=== PATIENT | male | born 1965 | race Caucasian/White ===

== ENCOUNTER → 2020-03-05 07:36 | Outpatient (CLI) | payer OTHER, SELFPAY ==
--- NOTE | 2020-03-05 | DI.ECHO.S_ITS ---
[place] [facility]---------+ [facility] +---------+ : : [address] : : : : [id number] : : : : Phone: [phone]---------+ Echocardiogram Report + + :Name: TANO ARCE Study Date: 03/05/2020 Height: 72 in : :[facility] Weight: 220 lb : : Gender: Male BSA: 2.2 m2 : :: 1965 Age: 54 yrs BP: 115/69 mmHg: :Reason For Study: CARDIOMYOPATHY : :Ordering Physician: JALEESA, : :LORA Performed By: Lakshmi Love : :Referring: LORA LAZCANO : + + Interpretation Summary The left ventricle is normal in size and wall thickness. This is Decreased compared to the previous study. There has been no significant change in LVEF since the previous exam. LV ejection fraction is about 30 to 35%. The right ventricle is at the upper limits of normal in size. The right ventricular systolic function is normal. There is a pacemaker lead in the right ventricle (new finding). No significant valvular pathology seen. The IVC is of normal diameter and collapses greater than 50% with a sniff. This suggests a low right atrial pressure of 3 mm Hg. Procedure: A two-dimensional transthoracic echocardiogram with color flow and Doppler was performed. The study quality was technically adequate. Comparison is made with the echocardiogram of 07/21/2016. The patient had occasional PVCs during the exam. The heart rate ranged between 65-87 bpm during the study. The patient was in normal sinus rhythm during the exam. Left Ventricle: The left ventricle is normal in size and wall thickness. This is Decreased compared to the previous study. There is no thrombus. The ejection fraction is estimated to be 30-35%. There has been no significant change since the previous exam. There is moderate to severe global hypokinesis of the left ventricle. There is a significant dyssynchronous contraction pattern, consistent with a conduction abnormality. Diastolic parameters suggest a relaxation abnormality of the left ventricle, consistent with probable normal filling pressures. Right Ventricle: The right ventricle is at the upper limits of normal in size. There is a pacemaker lead in the right ventricle. The right ventricular systolic function is normal. Atria: The left atrial size is normal. Both atria have remained unchanged in size since the prior echo exam. Right atrial size is normal. There is a catheter/pacemaker lead seen in the right atrium. There is no Doppler evidence for an interatrial shunt. Mitral Valve: There is mild mitral annular calcification. There is trace mitral regurgitation. Aortic Valve: The aortic valve is not well visualized. The aortic valve is grossly normal. The aortic valve opens well. There is no aortic valve stenosis. No aortic regurgitation is present. Tricuspid Valve: The tricuspid valve is normal in structure and function. There is trace tricuspid regurgitation. Pulmonary artery pressures cannot be estimated because of the lack of a measurable TR jet velocity but the IVC suggests a CVP of around 3 mmHg. Pulmonic Valve: The pulmonic valve is not well seen, but is grossly normal. There is no pulmonic valvular regurgitation. Great Vessels: The aortic root is normal size. The dimensions of the ascending aorta are normal. The IVC is of normal diameter and collapses greater than 50% with a sniff. This suggests a low right atrial pressure of 3 mm Hg. Pericardium/ Pleura There is no pericardial effusion. There is no pleural effusion. MMode/2D Measurements & Calculations LVIDd: 5.1 cm LVOT diam: 2.2 cm LVIDs: 4.3 cm Ao root diam: 2.9 cm FS: 16.3 % asc Aorta Diam: 2.8 cm EPSS: 0.92 cm Ao Arch Diam (Prox Trans): 3.0 cm IVSd: 0.88 cm LVPWd: 0.89 cm LV blair. diameter/BSA (cm/m^2): 2.3 LV sys. diameter/BSA (cm/m^2): 1.9 LA A2 area: 17.4 cm2 RA long axis: 4.4 cm LA A4 area: 18.9 cm2 RA area: 13.2 cm2 LA length (vol): 5.6 cm RA vol: 33.7 ml LA vol: 50.1 ml RA : 15.2 ml/m2 LA vol index: 22.6 ml/m2 IVC diam: 1.4 cm RVD1 (basal): 4.1 cm TAPSE: 1.8 cm Doppler Measurements & Calculations Ao V2 max: 137.6 cm/sec LVOT Max Julius: 65.9 cm/sec Ao V2 mean: 94.6 cm/sec LV V1 max P.7 mmHg Ao max P.6 mmHg LV V1 VTI: 13.0 cm Ao mean P.0 mmHg RODGER(I,D): 1.9 cm2 Ao V2 VTI: 24.9 cm RODGER(V,D): 1.8 cm2 sev ratio: 0.52 RODGER indexed to BSA (cm^2/m^2): 0.87 MV E max julius: 47.6 cm/sec PA V2 max: 62.8 cm/sec MV A max julius: 87.7 cm/sec PA V2 mean: 42.5 cm/sec MV E/A: 0.54 PA mean P.81 mmHg Med Peak E' Julius: 6.8 cm/sec PA pr(Accel): 22.5 mmHg E/E' med: 7.0 Lat Peak E' Julius: 8.9 cm/sec E/E' lat: 5.4 E/e' average: 6.2 MV dec time: 0.31 sec SV(LVOT): 48.2 ml Reading Physician:[id number] PM
== END ==
PROVIDERS: Referring Provider Internal Medicine Cardiovascular Disease; Visit Provider Internal Medicine Cardiovascular Disease
DX: I42.0 Dilated cardiomyopathy (principal); Z95.0 Presence of cardiac pacemaker
CPT/HCPCS: 93306